=== PATIENT | male | born 1975 | race Caucasian/White ===

== ENCOUNTER 2017-03-06 13:21 | Emergency (ER) | payer BC ==
[~2017-03-06] VITALS: Ht 185.4 cm; Wt 108.3 kg
[2017-03-06 13:25] VITALS: TEMP 36.6; Ht 185.4 cm; Wt 108.3 kg
[2017-03-06] MEDS ORDERED: ASPI81TA28 PO (13:35)
[2017-03-06] MEDS ORDERED: XYLOCAINE 1%/SOD BICARB 20 ML VIAL INFIL ONE (13:45)
[2017-03-06] MEDS ORDERED: DIPHTHERIA/TETANUS/PERTUSSIS 0.5 ML SYR/VIAL IM. ONE (13:45)
--- NOTE | 2017-03-06 13:45 | EMERGENCY ROOM VISIT NOTE ---
History First contact with patient: 13:37 Chief Complaint: BITE Stated Complaint: DOG BITE History of Present Illness The patient is a 41 year old male who presents to the Emergency Room with complaints of dog bite. The patient states that he was playing with his dog and the dog accidentally bit him on the right hand. He reports a superficial laceration to the posterior aspect of the right index finger. He also has a laceration to the palmar aspect of the right hand near the base of the second and third fingers. He states he was able to get the bleeding stopped. He rates his discomfort a 4/10. He denies any weakness, decreased range of motion , numbness or tingling. He believes the dog's vaccinations are up-to-date. He states his tetanus is not up-to-date. He denies any other injury. Review of Systems A 10 system review of systems was completed with positives and pertinent negatives listed in the HPI. Past Medical/Surgical History Patient denies Social History Smoking Status: Never Smoker Housing Status: lives with family Current/Historical Medications Scheduled Amoxicillin & Pot Clavulanate (Augmentin 875-125 mg), 1 TAB PO BID Aspirin (Aspirin Ec), 81 MG PO DAILY Allergies Coded Allergies: Loperamide (Unverified Allergy, Mild, "BLOWING UP LIKE A BALLOON", 03/06/17 ) Uncoded Allergies: IMODIUM (Allergy, Unknown, HIVES, 01/25/05) Physical Exam Vital Signs Date Time Temp Pulse Resp B/P Pulse Ox O2 Delivery O2 Flow Rate FiO2 03/06/17 15:29 78 145/95 97 03/06/17 13:25 36.6 91 20 148/102 97 Room Air Physical Exam VITALS: Vitals are noted on the nurse's note and reviewed by myself. Vital signs stable. GENERAL: This is a 41-year-old male, in no acute distress, nondiaphoretic, well- developed well-nourished. SKIN: There is a jagged 3 cm laceration to the palmar aspect of the right hand in the area of the base of the second and third fingers. The edges gape with traction. There is no significant bleeding. There is a second more superficial laceration to the posterior aspect of the right index finger. It measures approximately 2 cm. There is no tenting of the skin. Capillary reflex less than 2 seconds. HEAD: Normocephalic atraumatic. EARS: The external ears are normal in appearance EYES: Pupils equal round and reactive to light and accommodation. Conjunctivae without injection, sclerae without icterus. Extraocular movements intact. NOSE: Patent, turbinates without inflammation or discharge. MOUTH: Mucous membranes moist. Tonsils are not enlarged. Pharynx without erythema or exudate. Uvula midline. Airway patent. Tongue does not deviate. NECK: Supple without nuchal rigidity. No JVD. HEART: Regular rate and rhythm without murmurs gallops or rubs. LUNGS: Clear to auscultation bilaterally without wheezes, rales or rhonchi. No dullness to percussion. No retractions or accessory muscle use. MUSCULOSKELETAL: No muscle atrophy, erythema, or edema noted. Full range of motion without joint tenderness in all extremities. Lacerations to the right hand as above. Normal gait. Strength 5/5 throughout. NEURO: Patient was alert and oriented to person place and time. Normal sensation to light and sharp touch. No focal neurological deficits. Medical Decision & Procedures Medications Administered Medications (Trade) Dose Ordered Sig/Leland Route Start Time Stop Time Status Last Admin Dose Admin Diphtheria/ Pertussis/Tetanus Vacc (Adacel Inj) 0.5 ml ONCE ONCE IM. 03/06/17 13:45 03/06/17 13:46 DC 03/06/17 14:04 0.5 ML Procedure An irregular dog bite/laceration to the palmar aspect of the right hand was repaired. This was approximately 3 cm in length. Using sterile technique the wound was cleaned with Betadine. The area was sterilely draped. 7 ml of 1% buffered lidocaine was used to anesthetize the skin. Once the patient was numb , the wound was copiously irrigated under pressure with sterile saline, 1 L of normal saline using the [employer] pulse lavage. The wound was explored and there were no deep structures such as tendons, bone, or ligaments present. The laceration was repaired using 10 simple interrupted 5-0 nylon sutures with the wound edges being well approximated. The patient tolerated the procedure well. The bleeding stopped. The area was cleaned with sterile saline and dressed with bacitracin ointment and bandage. The patient was placed in a metal splint by the emergency department nurse and the position was satisfactory. The patient was given a tetanus booster. ED Course The patient was seen and examined. Previous visits were reviewed. The patient sustained a dog bite to the right hand. There is a jagged laceration to the palmar aspect of the right first finger at the base and this extended to the palm of the hand. The patient had full range of motion and strength. He had good sensation. The patient stated he did not feel that the dog bit down on his hand but the tooth caught his finger and he pulled it away causing a laceration. He did not want an x-ray. I discussed the risks, benefits and alternatives of repairing a dog bite with sutures. I advised him that the risk of infection is increased but the laceration on the palm of the hand is gaping and would benefit from sutures. The wound was cleaned and repaired as above. The patient was placed in a metal splint He'll be placed on Augmentin twice daily for 10 days I recommended a follow-up with orthopedics given that this is a hand injury and a dog bite to ensure that it heals well. Medical Decision The differential diagnosis includes tendon injury, bony injury, laceration, dog bite, among others Impression Primary Impression: Dog bite Additional Impression: Hand laceration Departure Information Dispostion Home / Self-Care Condition GOOD Prescriptions Amoxicillin & Pot Clavulanate (Augmentin 875-125 mg) 1 Tab Tab 1 TAB PO BID for 10 Days, #20 TAB Prov: Evelina Lennon PA-C 03/06/17 Referrals Ranjeet Alatorre M.D. (PCP) Renato Benítez, DO Patient Instructions ED Bite Dog, [facility] Additional Instructions Keep wound clean and dry. Do not allow any crusting or dried blood to accumulate on sutures. If this occurs, use a 1:1 solution of hydrogen peroxide/ water on a Q-tip to clean the wound. Use an antibiotic ointment for 3-4 days, then let wound dry. Suture removal in 10-12 days. Return sooner for any signs of infection (increasing redness, swelling, drainage). Ice and elevate for swelling and pain. Ibuprofen 600 mg a every 6 hrs for pain. Keep covered when in sun until sutures removed then SPF 50 or higher for one year. Vitamin E oil if desired two weeks after suture removal for reduction of scar. Augmentin every 12 hours for 10 days to help prevent infection Wear the splint except for dressing changes over the next 10-12 days Contact orthopedics to schedule a follow-up appointment for recheck in the next 5-7 days to ensure that the wound is healing well given that it is a hand and it is a dog bite Return with any worsening symptoms, redness, swelling, warmth Problem Qualifiers Primary Impression: Dog bite Encounter type: initial encounter Qualified Codes: W54.0XXA - Bitten by dog , initial encounter Additional Impression: Hand laceration Encounter type: initial encounter Foreign body presence: without foreign body Laterality: right Qualified Codes: S61.411A - Laceration without foreign body of right hand, initial encounter
[2017-03-06] MEDS ORDERED: AMOX875T PO (14:58)
[2017-03-06 15:29] VITALS: BP 145/95; PULSE 78; O2SAT 97
[2017-03-09] MEDS ORDERED: IBUP-1451 PO (21:02)
== END 2017-03-06 15:30 | disposition home or self-care (01) ==
LOC: C.EDB 13:23 → C.EDD 15:30
DX: S61.411A Laceration without foreign body of right hand, initial encounter (principal); S61.250A Open bite of right index finger without damage to nail, initial encounter; W54.0XXA Bitten by dog, initial encounter; Z79.82 Long term (current) use of aspirin; Z79.899 Other long term (current) drug therapy; Z23 Encounter for immunization